=== PATIENT | female | born 1970 | race Caucasian/White ===

== ENCOUNTER 2016-04-23 07:34 | Outpatient (CLI) | payer OTHER | END 2016-04-23 07:35 | disposition home or self-care (01) | DX: D25.1 Intramural leiomyoma of uterus (principal); N83.292 Other ovarian cyst, left side; N93.9 Abnormal uterine and vaginal bleeding, unspecified; N94.11 Superficial (introital) dyspareunia ==

== ENCOUNTER 2016-09-27 11:56 | Outpatient (CLI) | payer OTHER ==
--- NOTE | 2016-09-28 12:21 | XRAY Report ---
RIGHT ELBOW TWO VIEWS: 09/27/2016 CLINICAL HISTORY: Lateral epicondylitis. FINDINGS: The soft tissues appear normal. The examination is negative for soft tissue calcification. No joint space narrowing is seen. Tiny spur is noted along the anterior aspect of the proximal portion of the coronoid fossa. IMPRESSION: NO SIGNIFICANT ABNORMALITY. JOB #: [id number] EXT JOB #:[id number]
== END 2016-09-27 11:57 | disposition home or self-care (01) ==
LOC: DI.N 11:56
PROVIDERS: ATTEND Physician Assistant
DX: M77.11 Lateral epicondylitis, right elbow (principal)

== ENCOUNTER 2017-03-06 07:26 | Outpatient (CLI) | payer OTHER ==
--- NOTE | 2017-03-06 10:10 | Ultrasound Report ---
PELVIC ULTRASOUND: 03/06/2017 CLINICAL INDICATION: Excessive menstruation. TECHNIQUE: Transabdominal pelvic ultrasound performed for global evaluation. Transvaginal pelvic ul trasound performed for detailed evaluation. Real-time scanning performed and static images obtained. COMPARISON: 04/23/2016 FINDINGS: The uterus is anteverted, measuring 9.5 x 5.9 x 4.9 cm. The endometrial echo complex yolette ures 4 mm. There is a 1.2 x 1.1 x 1.0 cm fundal intramural leiomyoma. Left parovarian cysts appear unchanged from previous. The right ovary measures 3.4 x 2.3 x 1.9 cm, and demonstrates a resolving f ollicle. The left ovary measures 4.5 x 3.6 x 3.3 cm, and contains a 3.6 cm simple cyst. No free flu id is present. IMPRESSION: A 3.6 CM LEFT OVARIAN CYST. STABLE LEFT PAROVARIAN CYSTS. SMALL INTRAMURAL LEIOMYOMA. JOB #: [id number] EXT JOB #:[id number]
== END 2017-03-06 07:27 | disposition home or self-care (01) ==
LOC: DI 07:26
PROVIDERS: ATTEND Obstetrics & Gynecology
DX: N83.202 Unspecified ovarian cyst, left side (principal); D25.1 Intramural leiomyoma of uterus
CPT/HCPCS: 76830; 76856

== ENCOUNTER 2017-09-28 06:36 | Outpatient (CLI) | payer OTHER ==
[2017-09-28] MEDS ORDERED: IOPAMIDOL-300 50 ML VIAL ONE (06:52)
[2017-09-28] MEDS ORDERED: IOPAMIDOL-300 100 ML VIAL ONE (06:52)
[2017-09-28] MEDS ORDERED: IOPAMIDOL-300 50 ML VIAL PO ONE (08:16)
[2017-09-28] MEDS ORDERED: IOPAMIDOL-300 100 ML VIAL IVP ONE (08:16)
--- NOTE | 2017-09-30 09:47 | CT Report ---
Procedure Date: 09/28/2017 Accession Number: [id number] / [id number] Procedure: CT - Abdomen/Pelvis W/ CPT Code: FULL RESULT: EXAM: CT ABDOMEN AND PELVIS WITH CONTRAST EXAM DATE: 09/28/2017 08:10 AM. CLINICAL HISTORY: Generalized intra-abdominal and pelvic swelling, mass. COMPARISONS: None. TECHNIQUE: Routine helical CT imaging was performed through the abdomen and pelvis. IV contrast: 100 cc Isovue-300. Enteric contrast: Yes. Reconstructions: Coronal and sagittal. In accordance with CT protocol optimization, one or more of the following dose reduction techniques were utilized for this exam: automated exposure control, adjustment of mA and/or KV based on patient size, or use of iterative reconstructive technique. FINDINGS: Lung Bases: Unremarkable. Liver: Normal. No masses. Gallbladder/Bile Ducts: Status post cholecystectomy. No ductal dilatation. Spleen: Normal. Pancreas: Normal. Adrenal Glands: Normal. Kidneys: 3 mm nonobstructing right renal calculus is demonstrated. There is a 2.0 x 2.0 x 1.8 cm left upper pole mildly exophytic lesion with density measurements which are indeterminate. A mass is not excluded. There is a mostly exophytic 3.9 cm lesion extending from the anterior mid to lower pole with density measurements also above that of water. This likely represents a hyperdense cyst, but it is indeterminant. There are multiple additional bilateral renal hypodensities measuring up to 1.1 cm on the left and 1.2 cm on the right. These likely all represent cysts although some are too small to definitively characterize. No hydronephrosis or hydroureter. No perinephric stranding. Peritoneal Cavity/Bowel: Colonic diverticulosis without evidence of diverticulitis. No free fluid, free air or adenopathy. No masses or acute inflammatory process. The appendix is well visualized and normal. Moderate amount of stool throughout the colon. Pelvic Organs: Normal. The bladder and visualized pelvic organs are within normal limits. Vasculature: Very mild calcifications. No aneurysm. Bones: No significant abnormality. Other: Midline ventral hernia approximately 4.7 cm above the umbilicus with a defect measuring approximately 7 mm. The hernia contains fat and some focal fluid which measures up to 2.2 cm in maximum diameter. IMPRESSION: 1. Two left renal lesions measuring up to 2.0 and 3.9 cm which are indeterminant on this exam. Further evaluation by renal ultrasound is recommended. 2. Multiple additional smaller bilateral renal hypodensities likely all represent cysts although some are too small to definitively characterize. 3. Nonobstructing right renal calculus. 4. Status post cholecystectomy. 5. Small, midline ventral hernia containing fat and fluid. RADIA
== END 2017-09-28 06:37 | disposition home or self-care (01) ==
LOC: DI 06:36
PROVIDERS: ATTEND Obstetrics & Gynecology
DX: N28.9 Disorder of kidney and ureter, unspecified (principal); N20.0 Calculus of kidney; K43.9 Ventral hernia without obstruction or gangrene; Z90.49 Acquired absence of other specified parts of digestive tract
CPT/HCPCS: 74177; Q9967

== ENCOUNTER 2017-10-04 08:18 | Outpatient (CLI) | payer OTHER ==
--- NOTE | 2017-10-04 12:56 | Ultrasound Report ---
Procedure Date: 10/04/2017 Accession Number: [id number] / [id number] Procedure: US - Retroperitoneal CPT Code: FULL RESULT: EXAM: Retroperitoneal DATE: 10/04/2017 9:33 AM CLINICAL HISTORY: NEOPLASM OF UNCERTAIN BEHAVIOR OF LEFT KIDNEY,GELY COMPARISON: CT 09/28/2017 TECHNIQUE: Real-time scanning was performed with static images obtained. FINDINGS: Right Kidney: 10.1 x 5.9 x 3.9 cm. Small cysts. Nonobstructing calculi. No solid renal mass identified. No hydronephrosis. Left Kidney: 11.2 x 4.6 x 4.6 cm. Cortical cysts. The lesions identified on CT correlate with a 3.8 cm exophytic mid pole cyst with layering debris, and a 1.8 cm cyst with debris in the upper pole. Bladder: Bilateral jets seen. The prevoid bladder volume was 96 cc. The postvoid bladder volume was 0 cc. IMPRESSION: No evidence of a solid renal mass. Right nephrolithiasis. Bilateral cysts. RADIA
== END 2017-10-04 08:19 | disposition home or self-care (01) ==
LOC: DI 08:18
PROVIDERS: ATTEND Internal Medicine
DX: N28.1 Cyst of kidney, acquired (principal); N20.0 Calculus of kidney
CPT/HCPCS: 76770

== ENCOUNTER 2017-11-05 08:01 | Day surgery (SDC) | payer OTHER ==
--- NOTE | 2017-11-05 07:54 | ANESTHESIA ---
Pre-Anesthesia VS, & Labs - Diagnosis ventral/incisional hernia - Procedure Ventral/Incisional hernia repair with possible mesh Vital Signs: 137/74 74 99% 16 Height 5 ft 2 in - NPO >8 hours - Is Patient ?: No Home Medications and Allergies Home Medications: Ambulatory Orders Medication Instructions Recorded Confirmed Birthcontrol 01/18/15 01/18/15 Allergies/Adverse Reactions: Allergies Allergy/AdvReac Type Severity Reaction Status Date / Time prochlorperazine Allergy Unknown Verified 11/05/17 08:20 [From Compazine] prochlorperazine maleate * Allergy Unknown Verified 11/05/17 08:20 [From Compazine] metoclopramide HCl * AdvReac Severe Unknown Verified 11/05/17 08:20 [From Reglan] prochlorperazine edisylate * AdvReac Severe Unknown Verified 11/05/17 08:20 [From Compazine] Anes History & Medical History - Anesthetic History Anesthesia Complications: reports: No previous complications Family history of Anesthesia Complications: Denies Family history of Malignant Hyperthermia: Denies - Airway/Dental Dental: WNL, Partials Upper (removed, also implant) Mallampati classification: II Thyromental Distance: 4-6 cm - Medical History Cardiovascular: reports: None Pulmonary: reports: None Gastrointestinal: reports: None Urinary: reports: None, Kidney stones Musculoskeletal: reports: None Endocrine/Autoimmune: reports: None Skin: reports: None Smoking Status: Former smoker (September 26 2015) - Surgical History General: Cholecystectomy Orthopedic: Other (ankle surrgery, shoulder surgery) Exam General: Alert, Oriented x3 Respiratory: Lungs clear Cardiovascular: Regular rate Neurological: Normal speech Mental/Cognitive Status: Alert/Oriented X3 Cognitive Status: Within normal limits Plan Anesthesia Type: General Consent for Operative Procedure(s) Verified and Reviewed: Yes Code Status: Attempt Resuscitation ASA classification: 2-Mild systemic disease Is this case an emergency?: No
[~2017-11-05 08:01] MED LIST: ceFAZolin 2 GM/50 ML 2 GM/50 ML BAG IV ONE
[2017-11-05] MEDS ORDERED: LACTATED RINGERS 1,000 ML IV ONE ×2 (08:04→11:20)
[2017-11-05] MEDS ORDERED: BUPIVACAINE 0.5% PF 30 ML VIAL ONE (08:20)
[2017-11-05 09:15] LABS: HCG UR QUAL NEGATIVE
[2017-11-05] MEDS ORDERED: ONDANSETRON 4 MG/2 ML VIAL IVP ONE (11:30)
[2017-11-05] MEDS ORDERED: MIDAZOLAM 2 MG/2 ML VIAL IVP ONE (11:30)
[2017-11-05] MEDS ORDERED: KETOROLAC 30 MG/ML VIAL IVP ONE (11:30)
[2017-11-05] MEDS ORDERED: PROPOFOL 200 MG/20 ML VIAL IVP ONE (11:30)
[2017-11-05] MEDS ORDERED: DEXAMETHASONE 4 MG/ML VIAL IVP ONE (11:30)
[2017-11-05] MEDS ORDERED: LIDOCAINE-MPF 2% 5 ML VIAL IM ONE (11:30)
[2017-11-05] MEDS ORDERED: BUPIVACAINE 0.5% PF 30 ML VIAL INFIL ONE (12:06)
--- NOTE | 2017-11-05 12:31 | OPERATIVE REPORT ---
Operative Report - General Procedure Date: 11/05/17 Planned Procedure: Incisional herniorrhaphy Pre-Op Diagnosis: Incisional hernia Procedure Performed: Incisional herniorrhaphy Post Op Diagnosis: Incisional hernia - Procedure Note Primary Surgeon: Nakul Lopez MD Anesthesia Provider: Luis A Freedman CRNA Anesthesia Technique: General LMA, Local (30 mL 1/2% marcaine) IV Fluids (mL): 400 Estimated Blood Loss (mL): 5 Complications: None. - Other Other Information/Narrative: OPERATIVE DESCRIPTION/REPORT: After verbal and written informed consent was obtained detailing the risks of infection, bleeding requiring transfusion with its risks, nerve injury, and , and after I met with the patient confirming the surgery and the site of the surgery, the patient was brought to the operative suite and placed supine on the operating table. Great care was taken to avoid pressure points to prevent pressure necrosis or nerve injury. Monitoring devices were applied along with TEDs and pneumatic compressive stockings (to prevent DVT). The patient received preoperative antibiotics for surgical prophylaxis. [ anesthesiologist] sedated and anesthetized the patient for the entire procedure. The patient was prepped and draped in the usual sterile manner. With the patient draped my initials were clearly visible. A "time in" then confirmed that the patient was identified with 3 identifiers (name, date and medical record number), the history and physical was in the chart, the signed consent confirming the procedure was in the chart, the patient was in the correct position, the aforementioned prophylactic measures were in place or given, we had the correct personnel and equipment to complete the procedure and that anesthesia, surgery and nursing were given an opportunity to express any concerns. With the agreement of everyone in the room, we proceeded with the operation. After anesthetizing the skin with 1/2% marcaine, an elliptical incision was made excising the previous incision and overlying the mass and dissection was carried down to the hernia defect using a combination of Metzenbaum scissors, scalpel, and mostly Bovie electrocautery. The fascial defect was delineated. The defect was only in the anterior fascia. Despite extensive investigation I could not find any other defect. The fascia was cleared of any adherent tissue for a distance 1.5 cm from the defect. The defect was closed using interrupted 2-0 PDS figure-8 sutures. The subcutaneous tissues were copiously irrigated, and then closed using an interrupted 2-0 Vicryl. Meticulous hemostasis was obtained using Bovie electrocautery. The skin incision was approximated with a running 4-0 Monocryl. At this point a time out was performed that confirmed that all the counts were correct, the procedure that was performed, the blood loss, the IV fluids administered, and the patient s condition. Having tolerated the procedure well, the patient was subsequently extubated and taken to recovery room in good and stable condition.
[2017-11-05] MEDS ORDERED: SODIUM CHLORIDE FLUSH 0.9% 10 ML SYRINGE ONE (12:58)
[2017-11-05 13:25] VITALS: BP 127/76
== END 2017-11-05 08:02 | disposition home or self-care (01) ==
LOC: SDS 08:01
PROVIDERS: ATTEND Surgery
PROC: 0WQF0ZZ Repair Abdominal Wall, Open Approach (ICD-10-PCS; principal; 2017-11-05 11:39)
DX: K43.2 Incisional hernia without obstruction or gangrene (principal); Z87.891 Personal history of nicotine dependence
CPT/HCPCS: 49560; 81025; J0690; J7120

== ENCOUNTER 2017-12-30 08:00 | Outpatient (CLI) | payer OTHER ==
[2017-12-30 14:16] LABS: BASOPHILS # (AUTO) 0.1 10^3/uL (0.0-0.1); BASOPHILS % (AUTO) 0.8 %; EOSINOPHILS # (AUTO) 0.1 10^3/uL (0.0-0.7); EOSINOPHILS % (AUTO) 1.5 %; HGB - HEMOGLOBIN 13.5 g/dL (12.0-16.0); LYMPHOCYTES # (AUTO) 1.6 10^3/uL (1.5-3.5); LYMPHOCYTES % (AUTO) 23.2 %; MEAN CORPUSCULAR HEMOGLOBIN 31.5 pg (27.0-31.0); MEAN CORPUSCULAR HGB CONC 33.6 g/dL (32.0-36.0); MEAN CORPUSCULAR VOLUME 93.6 fL (81.0-99.0); MEAN PLATELET VOLUME 9.1 fL (7.9-10.8); MONOCYTES # (AUTO) 0.4 10^3/uL (0.0-1.0); MONOCYTES % (AUTO) 6.3 %; NEUTROPHILS # (AUTO) 4.7 10^3/uL (1.5-6.6); NEUTROPHILS % (AUTO) 68.2 %; PLT - PLATELET COUNT 251 10^3/uL (130-450); RED BLOOD COUNT 4.28 10^6/uL (4.20-5.40); RED CELL DISTRIBUTION WIDTH 13.6 % (12.0-15.0); WHITE BLOOD COUNT 6.8 x10^3/uL (4.8-10.8)
[2017-12-30 14:43] LABS: ALBUMIN 3.7 g/dL (3.2-5.5); ALBUMIN/GLOBULIN RATIO 1.2 (1.0-2.2); BILIRUBIN,TOTAL 0.9 mg/dL (0.2-1.0); CALCIUM 8.9 mg/dL (8.5-10.3); CREATININE 0.7 mg/dL (0.4-1.0); TOTAL PROTEIN 6.8 g/dL (6.7-8.2)
[2017-12-31 08:01] LABS: FREE T4 (FREE THYROXINE) 0.68 ng/dL (0.58-1.64)
[2017-12-31 08:05] LABS: TOTAL T3 0.85 ng/mL (0.87-1.78)
== END 2017-12-30 08:01 | disposition home or self-care (01) ==
LOC: LAB.F 08:00
PROVIDERS: ATTEND Physician Assistant Medical
DX: E06.3 Autoimmune thyroiditis (principal); R53.83 Other fatigue
CPT/HCPCS: 36415; 80053; 84439; 84443; 84480; 84481; 85025; 86376

== ENCOUNTER 2017-12-31 20:05 | Outpatient (CLI) | payer OTHER ==
--- NOTE | 2018-01-01 11:00 | Ultrasound Report ---
Reason: FATIGUE AND MALAISE,HYPOTHYROIDISM DUE TO HASHIMOT Procedure Date: 12/31/2017 Accession Number: [id number] / [id number] Procedure: US - Head or Neck Soft Tissue CPT Code: FULL RESULT: EXAM: THYROID ULTRASOUND EXAM DATE: 12/31/2017 08:32 PM. 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 COMPARISON: None. TECHNIQUE: Real time sonographic imaging of the thyroid was performed by the stock tracer. Multiple healthcare representative static images were saved for review. FINDINGS: THYROID GLAND: Right Lobe: 4.1 x 1.2 x 1.4 cm, volume 3.58 cc. Normal background echotexture. Right Lobe Nodules: None. Left Lobe: 3.2 x 1.1 x 0.83 cm, volume 1.52 cc. Normal background echotexture. Left Lobe Nodules: None. Isthmus: 0.22 cm AP. Isthmic Nodules: None. LYMPH NODES: No adenopathy demonstrated in the central or lateral compartment. OTHER: None. IMPRESSION: Homogenous thyroid parenchyma without nodule demonstrating markedly increased vascularity by color Doppler. These findings are consistent with active thyroiditis. RADIA
== END 2017-12-31 20:06 | disposition home or self-care (01) ==
LOC: DI 20:05
PROVIDERS: ATTEND Physician Assistant Medical
DX: R53.83 Other fatigue (principal); E06.3 Autoimmune thyroiditis
CPT/HCPCS: 76536

== ENCOUNTER 2018-01-03 16:03 | Outpatient (CLI) | payer OTHER ==
--- NOTE | 2018-01-03 17:24 | Ultrasound Report ---
Reason: UNSPECIFIED OVARIAN CYST,UNSPECIFIED SIDE Procedure Date: 01/03/2018 Accession Number: [id number] / [id number] Procedure: US - Pelvic w/Transvaginal CPT Code: FULL RESULT: EXAM: PELVIC ULTRASOUND EXAM DATE: 01/03/2018 04:50 PM. CLINICAL HISTORY: Unspecified ovarian cyst, unspecified side. COMPARISON: Pelvic with transvaginal 04/23/2016 7:45 AM. TECHNIQUE: Realtime transabdominal pelvic scan performed to identify the uterus and adnexa and as an overview of other pelvic structures, followed by transvaginal scan to provide greater detail of the uterus and adnexa, with static image documentation. FINDINGS: Uterus: 9.1 x 5.0 x 4.5 cm. Anteverted position. Normal overall size and echotexture. Masses: None. Endometrium: 10.5 mm. Normal. Cervix: Unremarkable. Right Ovary: 2.1 x 1.3 x 1.2 cm, volume 1.70 cc. Normal echotexture and blood flow. Left Ovary: 2.9 x 1.5 x 2.1 cm, volume 4.75 cc. Normal echotexture and blood flow. Free Fluid: None. Other: None. IMPRESSION: Normal pelvic ultrasound. RADIA
== END 2018-01-03 16:04 | disposition home or self-care (01) ==
LOC: DI 16:03
PROVIDERS: ATTEND Obstetrics & Gynecology
DX: N83.209 Unspecified ovarian cyst, unspecified side (principal)
CPT/HCPCS: 76830; 76856

== ENCOUNTER 2018-01-09 07:32 | Outpatient (CLI) | payer OTHER ==
[2018-01-09 10:52] LABS: URIC ACID 3.3 mg/dL (2.6-7.2)
[2018-01-09 10:57] LABS: CRP - C-REACTIVE PROTEIN < 1.0 mg/dL (0-1.0)
[2018-01-09 13:12] LABS: RHEUMATOID FACTOR NEGATIVE (Negative)
[2018-01-11 14:36] LABS: ANA SCREEN NEGATIVE (NEGATIVE)
== END 2018-01-09 07:33 | disposition home or self-care (01) ==
LOC: LAB.F 07:32
PROVIDERS: ATTEND Physician Assistant Medical
DX: M25.50 Pain in unspecified joint (principal); R53.83 Other fatigue
CPT/HCPCS: 36415; 84550; 85651; 86038; 86140; 86200; 86430

== ENCOUNTER 2018-01-17 08:04 | Outpatient (CLI) | payer OTHER ==
--- NOTE | 2018-01-21 09:05 | Mammography Report ---
Reason: SCREEN w PERICO Procedure Date: 01/17/2018 Accession Number: [id number] / [id number] Procedure: ANIL - Screening Mammo w/Perico CPT Code: FULL RESULT: EXAM: Screening Mammo w/Perico DATE: 01/17/2018 8:43 AM CLINICAL HISTORY: Baseline. TECHNIQUE: Bilateral CC and MLO views were obtained. COMPARISON: None FINDINGS: The breast tissue is heterogeneously dense. No suspicious masses, clustered microcalcifications, skin thickening, or regions of architectural distortion are identified. IMPRESSION: Negative. RECOMMENDATION: Routine annual screening unless otherwise clinically indicated. BIRADS CATEGORY 1: Negative STANDARD QUALIFYING STATEMENTS: 1. This examination was not reviewed with the aid of Computer-Aided Detection (CAD). 2. A negative or benign imaging report should not delay biopsy if clinically suspicious findings are present. Consider surgical consultation if warrented. More than 5% of cancers are not identified by imaging. 3. Dense breasts may obscure an underlying neoplasm. 4. This examination was reviewed with the aid of 3D breast imaging (tomosynthesis).
== END 2018-01-17 08:05 | disposition home or self-care (01) ==
LOC: DI 08:04
PROVIDERS: ATTEND Obstetrics & Gynecology
DX: Z12.31 Encounter for screening mammogram for malignant neoplasm of breast (principal)
CPT/HCPCS: 77063; 77067

== ENCOUNTER 2018-01-20 07:37 | Outpatient (CLI) | payer OTHER ==
[2018-01-21 13:42] LABS: HEPATITIS B SURFACE ANTIGEN NON-REACTIVE (NON-REACTIVE)
[2018-01-21 14:46] LABS: HIV AG/AB 4TH GEN NON-REACTIVE (NON-REACTIVE)
[2018-01-21 15:01] LABS: HEPATITIS C ANTIBODY NON-REACTIVE (NON-REACTIVE)
== END 2018-01-20 07:38 | disposition home or self-care (01) ==
LOC: LAB.F 07:37
PROVIDERS: ATTEND Physician Assistant Medical
DX: Z20.5 Contact with and (suspected) exposure to viral hepatitis (principal); Z20.6 Contact with and (suspected) exposure to human immunodeficiency virus [HIV]
CPT/HCPCS: 36415; 86317; 86803; 87340; 87389

== ENCOUNTER 2018-01-24 07:31 | Outpatient (CLI) | payer OTHER ==
[2018-01-24 10:49] LABS: BILIRUBIN,URINE NEGATIVE (NEGATIVE); GLUCOSE, URINE (UA) NEGATIVE (NEGATIVE); KETONES,URINE (UA) NEGATIVE (NEGATIVE); LEUKOCYTE ESTERASE, URINE NEGATIVE (NEGATIVE); NITRITE,URINE NEGATIVE (NEGATIVE); OCCULT BLOOD,URINE TRACE-INTA (NEGATIVE); PROTEIN,URINE NEGATIVE (NEGATIVE); UROBILINOGEN,URINE 0.2 (NORMAL) E.U./dL (NORMAL)
[2018-01-24 11:00] LABS: CLARITY,URINE CLEAR (CLEAR)
[2018-01-24 11:16] LABS: RBC,URINE 0-5 /HPF (0-5)
[2018-01-24 11:17] LABS: AMORPHOUS SEDIMENT,UR Few /LPF; BACTERIA,URINE Rare /HPF (None Seen); MUCUS,URINE Few Strands; SQUAMOUS EPITHELIAL CELL,UR MOD Squamous (<= Few)
[2018-01-24 11:18] LABS: HCG UR QUAL NEGATIVE
== END 2018-01-24 07:32 | disposition home or self-care (01) ==
LOC: LAB.F 07:31
PROVIDERS: ATTEND Physician Assistant Medical
DX: D41.02 Neoplasm of uncertain behavior of left kidney (principal); R53.83 Other fatigue
CPT/HCPCS: 81001; 81025; 87086

== ENCOUNTER 2019-11-12 08:00 | Outpatient (CLI) | payer BC, OTHER | END 2019-11-12 23:59 | disposition home or self-care (01) | LOC: LAB.R 08:00 | PROVIDERS: ATTEND Internal Medicine Gastroenterology | DX: K52.9 Noninfective gastroenteritis and colitis, unspecified (principal) | CPT/HCPCS: 87015; 87272; 87329 ==